=== PATIENT | female | born 1990 | race Caucasian/White ===

== ENCOUNTER 2017-05-14 02:17 | Emergency (ER) | payer MEDICAID ==
[~2017-05-14] VITALS: Ht 172.7 cm; Wt 106.3 kg
[~2017-05-14 02:17] MED LIST: CYCL5TAB PO; IBUP-1222 PO; MORP30TA81 PO; OXYC15TA60 PO
[2017-05-14] MEDS ORDERED: KETOROLAC 30 MG/1 ML ONE (03:43)
[2017-05-14] MEDS ORDERED: KETOROLAC 30 MG/1 ML IM ONE (04:00)
[2017-05-14 04:11] VITALS: BP 124/72
== END 2017-05-14 04:14 | disposition home or self-care (01) ==
LOC: ED 04:00
DX: G89.29 Other chronic pain (principal); M54.5 Low back pain
CPT/HCPCS: 96372; 99283; J1885

== ENCOUNTER 2018-01-01 23:18 | Emergency (ER) | payer MEDICAID, OTHER ==
[~2018-01-01] VITALS: Ht 172.7 cm; Wt 107.0 kg
[2018-01-02] LABS: BASOPHILS # (AUTO) 0.06 x10^3/uL (0-0.1); BASOPHILS % (AUTO) 1 % (0-1); EOSINOPHILS # (AUTO) 0.44 x10^3/uL (0-0.4); EOSINOPHILS % (AUTO) 4 % (1-7); LYMPHOCYTES # (AUTO) 2.18 x10^3/uL (1-3.4); LYMPHOCYTES % (AUTO) 19 % (22-44); MD NO; MEAN CORPUSCULAR HEMOGLOBIN 30.4 pg (27.0-34.8); MEAN CORPUSCULAR HGB CONC 33.3 g/dL (32.4-35.8); MEAN CORPUSCULAR VOLUME 91.4 fL (80-100); MONOCYTES # (AUTO) 0.68 x10^3/uL (0.2-0.8); MONOCYTES % (AUTO) 6 % (2-9); NEUTROPHILS # (AUTO) 8.42 x10^3/uL (1.8-6.8); NEUTROPHILS % (AUTO) 72 % (42-75); PLATELET COUNT 230 x10^3/uL (130-400); RED BLOOD COUNT 4.55 x10^6/uL (3.82-5.3); RED CELL DISTRIBUTION WIDTH 13.6 % (9.6-15.2)
[2018-01-02] MEDS ORDERED: AMPICILLIN/SULBACTAM 3 GM in SODIUM CHLORIDE 0.9% 100 ML IV ONE
[2018-01-02] MEDS ORDERED: LIDOCAINE 1%, 20ML SQ ONE
[2018-01-02] MEDS ORDERED: SODIUM CHLORIDE FLUSH 10ML SYR IVF ONE
[2018-01-02] MEDS ORDERED: LIDOCAINE 1%, 20ML ONE (00:04)
[2018-01-02 00:10] LABS: ANION GAP 6 mmol/L (5-15); CALCIUM 7.9 mg/dL (8.5-10.1); CHLORIDE 104 mmol/L (98-107); CREATININE 0.76 mg/dL (0.55-1.02)
[2018-01-02] MEDS ORDERED: OXYcodone/APAP 5/325MG TABLET ONE (00:56)
[2018-01-02] MEDS ORDERED: OXYcodone/APAP 5/325MG TABLET PO ONE (01:00)
[2018-01-02] MEDS ORDERED: ONDANSETRON 2MG/ML, 2ML IVPush ONE (01:00)
[2018-01-02 01:37] VITALS: BP 138/83
[2018-01-02] MEDS ORDERED: VANCOMYCIN PER PHARMACY MC ONE (02:00)
[2018-01-02] MEDS ORDERED: VANCOMYCIN 2,000 MG in SODIUM CHLORIDE 0.9% 500 ML IV ONE (02:30)
== END 2018-01-02 03:07 | disposition home or self-care (01) ==
LOC: ED 01-02 02:58
DX: L03.113 Cellulitis of right upper limb (principal); Z90.49 Acquired absence of other specified parts of digestive tract
CPT/HCPCS: 10060; 36415; 76882; 80048; 82040; 85025; 87070; 87075; 87205; 96365; 99285; J0295; 87077

== ENCOUNTER 2019-06-16 00:04 | Emergency (ER) | payer SELFPAY ==
[~2019-06-16] VITALS: Ht 167.6 cm; Wt 102.8 kg
[2019-06-16 00:06] VITALS: BP 126/76
== END 2019-06-16 02:07 | disposition left against medical advice (07) ==
LOC: ED 00:43
DX: L03.317 Cellulitis of buttock (principal); F17.200 Nicotine dependence, unspecified, uncomplicated
CPT/HCPCS: 36415; 80053; 85025; 87040; 99283